=== PATIENT | female | born 1960 | race Caucasian/White ===

== ENCOUNTER → 2018-08-22 | Outpatient (CLI) | payer OTHER ==
[~2018-08-22] MED LIST: ALPR0.254 PO; AMIT10TA PO; BYSTOLIC5 MG PO; CALC-98 PO; CARI1.5C PO; CETI10TA22 PO; CRESTOR10 MG PO; DICY20TA3 PO; FLUT9.9S NS; IBUP-1027 PO; MULT1TAB52 PO; OMEG1CAP38 PO; SERT100T PO; ZOLP5TAB5 PO
--- NOTE | 2018-08-23 01:11 | PAIN ---
DATE OF SERVICE: 08/22/2018 INITIAL CONSULTATION FOR PAIN CLINIC CHIEF COMPLAINT: Low back and left lower extremity pain. HISTORY OF PRESENT ILLNESS: This is a 57-year-old female who presents with history of pain in the low back, left lower extremity for about 6 weeks, came on without any specific injury or action that she is aware of. She has had pain on and off in the back and legs from time to time over the years, but always got better with getting off her feet, putting a heating pad on her back or taking analgesics, but at this time it did not get better. The patient did have an MRI scan, which was ordered after this showing small left central focal disk extrusion extending caudad from the L4-L5 with mass effect on the left L5 nerve root with diffuse disk bulge and facet arthropathy and small right central focal disk protrusion at L5-S1 approaching the right S1 nerve root with diffuse disk osteophyte complex and facet arthropathy resulting in neural foraminal stenosis, worse on the right at that level. The patient reports it is worse with walking, standing and changing positions, wakes her up from sleep at least twice a night, can affect her bowel or bladder control, but without any loss of continence. She reports some urgency with urinary frequency when the pain is at its worst. The patient has been using a cane to ambulate. Has it with her today as well as using it in her right hand. The patient reports that she has had epidural injections in the distant past, physical therapy exercise she is currently doing, had physical therapy a few years ago, but she is doing exercises from the therapy currently and continues to do these. These initially helped, but now not doing as well. She is trying to walk every day about a half a mile, but it is becoming more difficult as well secondary to the pain. The patient has taken naproxen, Bradford and ibuprofen. The Bradford did help decrease the pain about 50%, ibuprofen and naproxen have not been decreasing the pain. The patient rates her disability rate from 0-10, 10 being the worst, is a 7 with family home responsibilities, a 9 with recreation, 8 with social activity, occupation and sexual behavior, 5 with self-care and life support activities. The patient reports no loss of motor function with significant fatigability of the left lower extremity with ambulation to even more than 10-15 minutes. PAST MEDICAL AND SURGICAL HISTORY: Significant for previous hysterectomy, difficulty sleeping, depression and hypercholesterolemia. Irritable bowel syndrome, which has been improved with medications as well. ALLERGIES: THE PATIENT IS ALLERGIC TO ZITHROMAX. FAMILY HISTORY: Significant for hypercholesterol, diabetes, chronic back pain and melanoma. SOCIAL HISTORY: The patient does not drink alcohol, does not smoke, does not use any illegal, illicit or recreational drugs. Is , lives with her spouse, lives locally in [place] in [place], has 2 children living with her at home as well and reports she is currently retired. REVIEW OF SYSTEMS: The patient's review of systems is positive for those items mentioned in history of present illness. All systems reviewed and otherwise negative. It is complete, full and well documented on the patient's chart. PHYSICAL EXAMINATION: VITAL SIGNS: The patient's blood pressure is 148/71, pulse is 68, respirations 16, temperature is 98.2 degrees Fahrenheit, height is 5 feet 6 inches, weight is 161 pounds. GENERAL: The patient is awake, alert, oriented, appropriate, very pleasant demeanor. HEENT: Head shows normocephalic, atraumatic. Extraocular muscles are intact and symmetrical. Oral cavity: Mucous membranes moist and pink. Dentition is intact. NECK: Shows anterior throat supple without palpable lymphadenopathy noted. Swallow reflex symmetrical. CHEST: Shows normal with inspection. Breath sounds clear to auscultation bilaterally. HEART: Shows S1, S2 clear. No murmurs auscultated. ABDOMEN: Soft, nontender, nondistended. No palpable organomegaly is noted. No rebound or guarding demonstrated. BACK: Shows spine grossly in the midline. Normal appearing thoracic kyphosis, cervical lordotic curvature and lumbar lordotic curvature. Lumbar paraspinous muscle shows symmetrical on inspection. On palpation shows some moderate tenderness diffusely throughout the upper, middle and lower distribution of paraspinous muscles, but only diffusely without radiation. The patient shows good rotational motion of lumbar spine, both laterally greater than 10 degrees right and left as well as extension greater than 10 degrees with forward flexion 45 degrees without significant pain reported. No tenderness over the spinous process, sacrum or sacroiliac regions. EXTREMITIES: The patient's lower extremities show deep tendon reflexes at 2+ in the patellar, 1+ tendocalcaneus tendons are equal. Motor exam is approximately 4 on a scale of 5 with left dorsiflexion and extension, 5/5 on the right. Peripheral pulses are 1+ posterior tibia. No peripheral edema is noted bilaterally. Straight leg raise noted to be mildly positive on the left at about 40 degrees, decreased with knee flexion, right side is negative. Gaenslen's and Riky's maneuvers are negative bilaterally. Peripheral pulses are 1+ posterior tibia. No peripheral edema is noted. Lower extremities are warm and dry to touch, equal in color and appearance. The patient is able to stand on her toes without significant difficulty or loss of balance, is walking with a slight shuffling gait, appears to favor the left lower extremity and has a cane she is using to ambulate in her right hand. The patient's skin shows warm and dry, good turgor, no edema. No sores, rashes or bruising. IMPRESSION: 1. This is a 57-year-old female with about a 6-week history of increasing pain in low back, left lower extremity in a radicular fashion following an L4-L5 dermatomal distribution. 2. MRI scan of lumbar spine as noted. 3. Hypercholesterolemia. PLAN: Options were discussed with the patient including conservative medical management, physical therapy, interventional techniques and she is doing physical therapy exercises on her own already. She would like to pursue interventional techniques as she has had some improvement with these in the past. We will preauth the patient for a lumbar epidural steroid injection. We described the procedure using description as well as anatomical models to describe the procedure as well. The patient will wait for preauthorization with insurance provider, but should continue doing physical therapies on her own, stretching and strengthening exercises, walking as much as tolerated and we will have her return for a L4-L5 lumbar epidural steroid injection once approval is obtained. TRISTAN MACKAY MD DR: ELPIDIO/michele JOB#: [id number] / [id number] EMERSON Petit MD
== END | disposition home or self-care (01) ==
LOC: PNCL 08:56
PROVIDERS: ATTEND Anesthesiology
DX: M48.061 Spinal stenosis, lumbar region without neurogenic claudication (principal); M54.16 Radiculopathy, lumbar region; E78.00 Pure hypercholesterolemia, unspecified; Z90.710 Acquired absence of both cervix and uterus; Z88.8 Allergy status to other drugs, medicaments and biological substances; Z83.3 Family history of diabetes mellitus; Z83.42 Family history of familial hypercholesterolemia; Z80.8 Family history of malignant neoplasm of other organs or systems
CPT/HCPCS: G0463

== ENCOUNTER → 2018-09-07 | Outpatient (CLI) | payer OTHER ==
[~2018-09-07] MED LIST changes: +IOHEXOL 180 MG/ML 10 ML VIAL. ONE; +LIDOCAINE 1% PF 2 ML VIAL. ONE; +methylPREDNISolone ACETATE 40 MG/ML VIAL. ONE; +methylPREDNISolone ACETATE 80 MG/ML VIAL. ONE
--- NOTE | 2018-09-07 19:46 | PAIN ---
DATE OF SERVICE: 09/07/2018 PROGRESS NOTE FOR PAIN CLINIC DIAGNOSIS: Lumbar radiculopathy with lumbar degenerative disk disease and lumbar spinal stenosis. HISTORY OF PRESENT ILLNESS: The patient is a 57-year-old female who returns for followup status post preauthorization after initial evaluation for lumbar epidural steroid injection. The patient has obtained that and would like to proceed. The patient reports there is still pain in the low back and the left lower extremity, fairly significant in the left lateral thigh, lateral anterior thigh, medial thigh, medial lower leg into the calf as well posteriorly. The patient reports it is shooting, burning, cramping, becoming more constant with walking, standing and changing positions. The patient reports it is an 8 on a scale of 10 at its worst, 8 on average and a 4 at its least and is an 8 today. The patient reports no new motor or sensory deficits, no new bowel or bladder incontinence. She is sleeping better at night, but she is taking some sleeping aids for that as well. The patient reports no new motor or sensory changes. No bowel or bladder incontinence or other complaints. PHYSICAL EXAMINATION: VITAL SIGNS: The patient's blood pressure is 134/69, pulse 51, respirations 16, temperature 97.9 degrees Fahrenheit, height is 5 feet 6 inches, weight is 157 pounds. GENERAL: The patient is awake, alert, oriented, appropriate, very pleasant demeanor. HEENT: Head shows normocephalic, atraumatic. Extraocular movements are intact and symmetrical. Oral cavity: Mucous membranes are moist and pink. Dentition is intact. NECK: Shows anterior throat supple without palpable lymphadenopathy noted. Swallow reflex is symmetrical. CHEST: Shows normal on inspection. Breath sounds are clear to auscultation bilaterally. HEART: Shows S1, S2 clear. No murmurs auscultated. ABDOMEN: Soft, nontender, nondistended. No palpable organomegaly is noted. No rebound or guarding demonstrated. BACK: Shows spine grossly in the midline. Normal appearing thoracic kyphosis and lumbar lordotic curvature. Lumbar paraspinous muscle shows symmetrical on inspection, on palpation shows some moderate tenderness diffusely in the lower lumbar distribution, more on the left than the right, but only diffusely. The patient has full rotational motion of lumbar spine, both laterally as well as extension and flexion without significant difficulty. EXTREMITIES: The patient's lower extremities show deep tendon reflexes at 2+ in the patellar and 1+ tendo calcaneus tendons. Motor exam is approximately 4 on a scale of 5 on the left with dorsiflexion and extension and 5/5 on the right. Peripheral pulses are 1+ posterior tibia. No peripheral edema is noted bilaterally. Options were discussed with the patient. The patient's old chart was reviewed as her current medication regimen updated. Current review of systems updated today as well. We will proceed with lumbar epidural steroid injection today, the first in this series. Risks were discussed including but not limited to bleeding, infection, possibility of epidural hematoma, subsequent neurologic compromise, dural puncture, headaches, spinal cord and/or nerve damage, side effects of steroid medication and poor results regarding pain control. The patient understands and wished to proceed. The patient will return to the clinic in approximately 2 weeks for followup, was counseled on return appointment, activity level and side effects to be aware of. DIAGNOSIS: Lumbar radiculopathy with lumbar degenerative disk disease and lumbar spinal stenosis. PROCEDURE: Lumbar epidural steroid injection, translaminar approach at L4-L5 level using C-arm fluoroscopic guidance under sterile prep and drape using local anesthetic. MEDICATION INJECTED: A total of 120 mg Depo-Medrol plus 10 mL of preservative-free normal saline and 2 mL of Isovue for contrast. CONDITION AT DISCHARGE: Stable. The patient tolerated the procedure well, had no complications. TRISTAN MACKAY MD DR: ELPIDIO/michele JOB#: [id number] / [id number]
== END | disposition home or self-care (01) ==
LOC: PNCL 08:53
PROVIDERS: ATTEND Anesthesiology
DX: M51.16 Intervertebral disc disorders with radiculopathy, lumbar region (principal); M48.061 Spinal stenosis, lumbar region without neurogenic claudication; Z88.1 Allergy status to other antibiotic agents; Z88.8 Allergy status to other drugs, medicaments and biological substances
CPT/HCPCS: 62323; J1030; J1040; Q9965; 62321

== ENCOUNTER → 2018-09-21 | Outpatient (CLI) | payer OTHER ==
[~2018-09-21] MED LIST changes: -IOHEXOL 180 MG/ML 10 ML VIAL. ONE; -LIDOCAINE 1% PF 2 ML VIAL. ONE; -methylPREDNISolone ACETATE 40 MG/ML VIAL. ONE; -methylPREDNISolone ACETATE 80 MG/ML VIAL. ONE
--- NOTE | 2018-09-21 23:17 | PAIN ---
DATE OF SERVICE: 09/21/2018 DIAGNOSES: Lumbar radiculopathy with lumbar degenerative disk disease, lumbar spinal stenosis. HISTORY OF PRESENT ILLNESS: The patient is a 57-year-old female who returns for followup status post lumbar epidural steroid injection x 1. The patient reports about 98% improvement in the low back and left lower extremity pain. The patient reports it is currently helping. She has been increasing her distance walking, sleeping better, increasing activities at work and at home as well as household activities and traveling with much greater ease and comfort. The patient is very pleased with her progress. The pain is returning, however, in the posterior gluteus, posterior lateral thigh, lateral anterior thigh, medial thigh, but only very minimal amount. The patient reports each day it seems to be more noticeable, but only slightly. The patient reports her pain is aching, burning in the left leg and low back on and off in intensity, again much better since first injection. The patient reports being a 1 on a scale of 10 at its worse, 1 on average, 0 at its least and is a 1 today. The patient reports no new motor or sensory deficits, no new bowel or bladder incontinence or other complaints. PHYSICAL EXAMINATION: VITAL SIGNS: The patient's blood pressure 128/65, pulse 52, respirations 16, temperature is 98.1 degrees Fahrenheit, height is 5 feet 6 inches and weight is 160 pounds. GENERAL: The patient is awake, alert, oriented, appropriate, very pleasant demeanor. HEENT: Head shows normocephalic, atraumatic. Extraocular movements intact and symmetrical. Oral cavity, mucous membranes moist and pink. Dentition is intact. NECK: Shows anterior throat supple without palpable lymphadenopathy noted. Swallow reflex symmetrical. CHEST: Shows normal with inspection. Breath sounds clear to auscultation bilaterally. HEART: Shows S1, S2 clear. No murmurs auscultated. ABDOMEN: Soft, nontender, nondistended. No palpable organomegaly is noted. No rebound or guarding demonstrated. BACK: Shows spine grossly in the midline. Normal appearing thoracic kyphosis and lumbar lordotic curvature. Lumbar paraspinous muscle shows symmetrical on inspection, on palpation shows some moderate tenderness, but only diffusely in the low lumbar distribution without radiation. The patient shows good rotational motion of lumbar spine, both laterally as well as extension and flexion without significant difficulty. EXTREMITIES: The patient's lower extremities show deep tendon reflexes at 2+ in the patellar, 1+ in the tendo-calcaneus tendons. Motor exam is approximately 4 on a scale 5 on the left with dorsiflexion and extension with 5/5 on the right. Peripheral pulses are 1+ posterior tibia. No peripheral edema is noted bilaterally. Options were discussed with the patient. The patient's old chart was reviewed as her current medication regimen updated. Current review of systems updated today as well. We will preauthorize the patient for a second lumbar epidural steroid injection today with fluoroscopic guidance. The patient will wait for preauthorization and will maintain stretching and strengthening exercises as well as walking daily as she has been as tolerated and increasing her activity as tolerated as well. The patient will follow up in approximately one week. We will plan on second lumbar epidural steroid injection at that time for continued L4-L5 radiculopathy on the left for L4-L5 translaminar injection at that time. TRISTAN MACKAY MD DR: ELPIDIO/nts JOB#: [id number] / [id number]
== END | disposition home or self-care (01) ==
LOC: PNCL 07:59
PROVIDERS: ATTEND Anesthesiology
DX: M51.16 Intervertebral disc disorders with radiculopathy, lumbar region (principal); M48.061 Spinal stenosis, lumbar region without neurogenic claudication
CPT/HCPCS: G0463